=== PATIENT | male | born 1950 | race Caucasian/White ===

== ENCOUNTER 2023-12-08 17:02 | Inpatient (IN) | payer OTHER, SELFPAY ==
[2023-12-08] VITALS (14 sets, daily range): BP systolic 105–160; BP diastolic 75–128; BMI 31.9; BMI 25.3
[2023-12-08 13:55] LABS: % Basophils 0.1 % (0-2); % Eosinophils 0.1 % (0-6); % Immature Granulocytes 0.4 % (0-0.5); % Lymphocytes 5.4 % (20.5-51.1); % Monocytes 4.9 % (1.7-9.3); % Neutrophils 89.1 % (42.2-75.2); Absolute Immature Granulocytes 0.1 10^3/uL (0-0.05); Absolute Lymphocytes 0.8 10^3/uL (1.2-3.4); Absolute Monocytes 0.7 10^3/uL (0.1-0.6); Absolute Neutrophils 12.3 10^3/uL (1.4-6.5); Hematocrit 33.7 % (39.0-52.0); Hemoglobin 11.3 g/dL (13.0-18.0); Mean Corp Hgb Conc. 33.5 g/dL (33.0-37.0); Mean Corpuscular Volume 92.3 fL (80.0-94.0); Mean Platelet Volume 10.4 fL (7.4-10.4); Nucleated Red Blood Cells % 0 % (-); Platelet Count 117 10^3/uL (130-400); Red Blood Cell Count 3.65 10^6/uL (4.70-6.10); Red Cell Dist. Width 12.6 % (11.5-14.5); White Blood Cell Count 13.8 10^3/uL (4.8-10.8)
[2023-12-08 14:22] LABS: ALT (SGPT) 159 U/L (0-50); AST (SGOT) 215 U/L (17-59); Albumin 3.9 g/dl (3.5-5.0); Alkaline Phosphatase 266 U/L (38-126); Blood Urea Nitrogen 86 mg/dl (9-20); Calcium 8.7 mg/dl (8.4-10.2); Carbon Dioxide 21 mmol/L (22-30); Chloride 95 mmol/L (98-107); Glucose 184 mg/dl (70-99); Potassium 4.9 mmol/L (3.5-5.1); Sodium 133 mmol/L (135-145); Total Bilirubin 1.1 mg/dl (0.2-1.3); Total Protein 6.7 g/dl (6.3-8.2); eGFR 16.33
[2023-12-08 14:33] LABS: NT-proBNP > 27000 pg/ml
--- NOTE | 2023-12-08 15:15 | ED.GENMED ---
History of Present Illness
<Loyd Davila PA-C - Last Filed: 12/08/23 15:52>
General
Chief Complaint: Breathing Problem
Source: patient and care aide
Time Seen by Provider: 12/08/23 14:59
History of Present Illness
History of Present Illness:
73-year-old male with past medical history of hypertension, hyperlipidemia, atrial fibrillation, CKD, gdg-fxyhoxo-etqfpmpri diabetes presenting to the emergency department with marine machinist for evaluation of gradually worsening shortness of breath
(patient states he always has some degree of shortness of breath) but last night also developed chest pain that was worse with deep inspiration, chest pain continues presently. Pain is in anterior portion of chest, non-radiating, pressure like
sensation. Patient states that he does cough intermittently but not any worse today than usual. Denies any fevers or recent illnesses. States that he does move around but often times is in bed for the most part. No recent travel or recent
antibiotics. Patient does take a 81 mg aspirin every Wednesday, Wednesday, Wednesday. Took his 81 mg this morning. Denies any other blood thinners.
Past History
<Loyd Davila PA-C - Last Filed: 12/08/23 15:52>
Past History
ED Past Medical History: Arrthythmia, Cancer, HTN, Hypercholesterolemia, NIDDM, Renal failure, Psychiatric (Bipolar disorder, schizophrenia, dependent personality disorder) and Other
ED Past Surgical History: Orthopedic and Other (Skin cancer removal)
Social History
Tobacco: Non-smoker
Alcohol: None
Drug: None
Personal: Single
Living: alone
Employment: Retired
Family History
Family History: Other (Not significant)
Review of Systems
<Loyd Davila PA-C - Last Filed: 12/08/23 15:52>
Review of Systems
All Other Systems: ROS reviewed and negative except as documented in HPI and ROS
Phy Exam
<Loyd Davila PA-C - Last Filed: 12/08/23 15:52>
Physical Exam
Physical Exam:
GENERAL: Alert , in no apparent distress
EYE: conjunctiva clear
NECK: Supple
ENT: o/p clr, mmm.
CARDIAC: Irregularly irregular rate and rhythm, systolic murmur
LUNGS: No tachypnea or accessory muscle use, no acute respiratory distress, Rales at the right base
NEUROLOGICAL: Alert and oriented
SKIN: Warm and dry, skin intact.
MUSCULOSKELETAL: well perfused. Trace nonpitting ankle edema bilateral
PSYCH: Normal and appropriate interaction.
Scores
<Loyd Davila PA-C - Last Filed: 12/08/23 15:52>
Heart Failure Risk
Heart Failure Risk Score: Yes
History of Stroke or TIA: No
History of intubation for respiratory distress: No
Heart rate on ED arrival >/= 110: No
SaO2 <90% on arrival on room air: No
HR >/=110 during 3min walk test (or too ill to perform test): Yes
ECG has acute ischemic changes: No
Urea >/=12mmol/L (BUN 33.6mg/dL): Yes
Serum CO2>/=35mmol/L: No
Troponin I or T elevated to PA Level (0.4mg/dL): Yes
NT-proBNP >/=5,000ng/L (5,000pg/ml): Yes
HF Risk Score: 6
Admission Status: VERY HIGH RISK 55.3% Consider admission to hospital
Heart Score for Chest Pain Patients
STEMI patient?: No
History: Moderately Suspicious
ECG: Nonspecific Repolarization
Age: >/= 65 years
Risk Factors: >/= 3 Risk Factors or History of CAD
Troponin: >/= 3 x Normal Limit
Heart Score for Chest Pain Patients: 8
Heart Score Risk: 72.7 % MACE over next 6 weeks
Withdrawal Assessment of Alcohol
Withdrawal Assessment Completed?: Not applicable
Course
<Loyd Davila PA-C - Last Filed: 12/08/23 15:52>
Orders/Labs/Results
Orders:
Orders
12/08/23 13:41
Electrocardiogram (*1) Urgent
Reason for Study: Atrial Fibrillation
CR Chest - 2 Views Urgent
Comment:
Reason For Exam: SOB
12/08/23 13:42
EKG- Treatment ONCE
12/08/23 13:48
Complete Blood Count/With Diff Urgent
Comprehensive Metabolic Panel Urgent
NT-proBNP Urgent
Troponin I Urgent
12/08/23 15:06
Aspirin Chewable [Low Strength Aspirin] 243 mg PO NOW STA
12/08/23 15:07
Heparin 7,800 units IV NOW STA
Nursing to Place Non Medication Order As Directed
Physician Order: PTT 6 hours after initial start of Heparin infusion
12/08/23 15:15
Heparin 14074 Units/250 ml 25,000 units in 250 ml IV PER PROTOCOL
Weight to be used for heparin protocol in kilograms (kg):: 97.9
Protocol:: Cardiac Tx/Acute Coronary
PTT Goal Range to be used:: PTT 73 to 111 seconds
Order type:: Initial
INITIAL Infusion Dose (UNITS/KG/hr) & then follow protocol:: 12 units/kg/hr
Infusion Dose in UNITS/hr & then follow protocol (UNITS/hr):: 1,000
INFUSION RATE in mL/hr & then follow protocol (mL/hr):: 10
PTT less than or equal to 64 seconds:: Increase rate by 200 units/hr (+ 2 mL/hr)
PTT 64.1 to 72.9 seconds:: Increase rate by 100 units/hr (+ 1 mL/hr)
PTT 73 to 111 seconds:: Target Range. No change in rate.
PTT 111.1 to 130.9 seconds:: Decrease rate by 100 units/hr (- 1 mL/hr)
PTT 131 to 199.9 seconds:: HOLD for 1 hr. Then decrease rate by 200 units/hr (- 2 mL/hr)
PTT greater than or equal to 200 seconds:: HOLD for 2 hrs & Notify Provider. Then decrease by 200 units/hr (-
2 mL/hr)
Lab follow-up:: Each change, PTT q6h until 2 consecutive are therapeutic. Then PTT
daily.
12/08/23 15:20
Furosemide [Lasix] 80 mg IV NOW STA
Nitroglycerin Sublingual [Nitrostat (Sublingual)] 0.4 mg SL [id number] PRN
12/08/23 15:21
Echo 2D MMode Color/Doppler Urgent
Reason for Study: abnormal troponin
12/08/23 15:28
PTT Urgent
Comment: Obtain baseline before beginning heparin infusion if not already collected
12/08/23 21:45
PTT Urgent
Abnormal Lab Results
12/08/23
13:48
WBC 13.8 H 10^3/uL
(4.8-10.8)
RBC 3.65 L 10^6/uL
(4.70-6.10)
Hgb 11.3 L g/dL
(13.0-18.0)
Hct 33.7 L %
(39.0-52.0)
Plt Count 117 L 10^3/uL
(130-400)
Abs Immat Gran (auto) 0.1 H 10^3/uL
(0-0.05)
Absolute Neuts (auto) 12.3 H 10^3/uL
(1.4-6.5)
Absolute Lymphs (auto) 0.8 L 10^3/uL
(1.2-3.4)
Absolute Monos (auto) 0.7 H 10^3/uL
(0.1-0.6)
Neutrophils % 89.1 H %
(42.2-75.2)
Lymphocytes % 5.4 L %
(20.5-51.1)
Sodium 133 L mmol/L
(135-145)
Chloride 95 L mmol/L
(98-107)
Carbon Dioxide 21 L mmol/L
(22-30)
BUN 86 H mg/dl
(9-20)
Creatinine 3.7 H mg/dL
(0.7-1.3)
Glucose 184 H mg/dl
(70-99)
AST 215 H U/L
(17-59)
ALT 159 H U/L
(0-50)
Alkaline Phosphatase 266 H U/L
(38-126)
Troponin I 0.740 H* ng/ml
12/08/23 13:48
12/08/23 13:48
Vital Signs
Initial and Last Documented VS:
Initial Vital Signs
Temp Pulse Resp BP Pulse Ox
98.1 F 92 18 145/78 99
12/08/23 13:37 12/08/23 13:37 12/08/23 13:37 12/08/23 13:37 12/08/23 13:37
Last Documented Vital Signs
Temp Pulse Resp BP Pulse Ox
98.1 F 92 18 160/108 99
12/08/23 13:37 12/08/23 13:37 12/08/23 13:37 12/08/23 15:38 12/08/23 13:37
Building Maintenance Technician consulted with Physician
Building Maintenance Technician consulted with physician?: Yes
Name of Physician Consulted: Juan Diego
<Arnav Adamson, DO - Last Filed: 12/08/23 15:28>
Orders/Labs/Results
Orders:
Orders
12/08/23 13:41
Electrocardiogram (*1) Urgent
Reason for Study: Atrial Fibrillation
CR Chest - 2 Views Urgent
Comment:
Reason For Exam: SOB
12/08/23 13:42
EKG- Treatment ONCE
12/08/23 13:48
Complete Blood Count/With Diff Urgent
Comprehensive Metabolic Panel Urgent
NT-proBNP Urgent
Troponin I Urgent
12/08/23 15:06
Aspirin Chewable [Low Strength Aspirin] 243 mg PO NOW STA
12/08/23 15:07
Heparin 7,800 units IV NOW STA
Nursing to Place Non Medication Order As Directed
Physician Order: PTT 6 hours after initial start of Heparin infusion
12/08/23 15:15
Heparin 00962 Units/250 ml 25,000 units in 250 ml IV PER PROTOCOL
Weight to be used for heparin protocol in kilograms (kg):: 97.9
Protocol:: Cardiac Tx/Acute Coronary
PTT Goal Range to be used:: PTT 73 to 111 seconds
Order type:: Initial
INITIAL Infusion Dose (UNITS/KG/hr) & then follow protocol:: 12 units/kg/hr
Infusion Dose in UNITS/hr & then follow protocol (UNITS/hr):: 1,000
INFUSION RATE in mL/hr & then follow protocol (mL/hr):: 10
PTT less than or equal to 64 seconds:: Increase rate by 200 units/hr (+ 2 mL/hr)
PTT 64.1 to 72.9 seconds:: Increase rate by 100 units/hr (+ 1 mL/hr)
PTT 73 to 111 seconds:: Target Range. No change in rate.
PTT 111.1 to 130.9 seconds:: Decrease rate by 100 units/hr (- 1 mL/hr)
PTT 131 to 199.9 seconds:: HOLD for 1 hr. Then decrease rate by 200 units/hr (- 2 mL/hr)
PTT greater than or equal to 200 seconds:: HOLD for 2 hrs & Notify Provider. Then decrease by 200 units/hr (-
2 mL/hr)
Lab follow-up:: Each change, PTT q6h until 2 consecutive are therapeutic. Then PTT
daily.
12/08/23 15:20
Furosemide [Lasix] 80 mg IV NOW STA
Nitroglycerin Sublingual [Nitrostat (Sublingual)] 0.4 mg SL [id number] PRN
12/08/23 15:21
Echo 2D MMode Color/Doppler Urgent
Reason for Study: abnormal troponin
12/08/23 15:28
PTT Urgent
Comment: Obtain baseline before beginning heparin infusion if not already collected
12/08/23 21:45
PTT Urgent
Abnormal Lab Results
12/08/23
13:48
WBC 13.8 H 10^3/uL
(4.8-10.8)
RBC 3.65 L 10^6/uL
(4.70-6.10)
Hgb 11.3 L g/dL
(13.0-18.0)
Hct 33.7 L %
(39.0-52.0)
Plt Count 117 L 10^3/uL
(130-400)
Abs Immat Gran (auto) 0.1 H 10^3/uL
(0-0.05)
Absolute Neuts (auto) 12.3 H 10^3/uL
(1.4-6.5)
Absolute Lymphs (auto) 0.8 L 10^3/uL
(1.2-3.4)
Absolute Monos (auto) 0.7 H 10^3/uL
(0.1-0.6)
Neutrophils % 89.1 H %
(42.2-75.2)
Lymphocytes % 5.4 L %
(20.5-51.1)
Sodium 133 L mmol/L
(135-145)
Chloride 95 L mmol/L
(98-107)
Carbon Dioxide 21 L mmol/L
(22-30)
BUN 86 H mg/dl
(9-20)
Creatinine 3.7 H mg/dL
(0.7-1.3)
Glucose 184 H mg/dl
(70-99)
AST 215 H U/L
(17-59)
ALT 159 H U/L
(0-50)
Alkaline Phosphatase 266 H U/L
(38-126)
Troponin I 0.740 H* ng/ml
12/08/23 13:48
12/08/23 13:48
Vital Signs
Initial and Last Documented VS:
Initial Vital Signs
Temp Pulse Resp BP Pulse Ox
98.1 F 92 18 145/78 99
12/08/23 13:37 12/08/23 13:37 12/08/23 13:37 12/08/23 13:37 12/08/23 13:37
Last Documented Vital Signs
Temp Pulse Resp BP Pulse Ox
98.1 F 92 18 160/108 99
12/08/23 13:37 12/08/23 13:37 12/08/23 13:37 12/08/23 15:38 12/08/23 13:37
<Loyd Davila PA-C - Last Filed: 12/08/23 15:52>
MDM/Problems Addressed
Differential Diagnosis Includes:
NSTEMI, PE, CHF, less concern for infectious etiology
MDM/Problems Addressed:
73-year-old male presenting to the emergency department for evaluation of shortness of breath that seems to be mostly chronic but last night started with chest discomfort that was worse with deep inspiration. Worsening pleurisy today prompting ER
visit. Difficult to ascertain if patient having pain at rest as he states 'I do not know'. Labs were initiated while in triage which reveals significant troponin elevation of 0.740, BNP is chronically elevated right around patient's baseline at
greater than 27,000. There is also worsening of patient's chronic kidney disease. Liver function tests are also now elevated after being normal over the last few times getting labs. High on differential is either an NSTEMI versus PE. Will treat
with additional 243 mg of aspirin and initiate patient on heparin bolus and drip. Will notify cardiology. Unable to obtain CT angio of the chest for PE rule out given patient's chronic kidney disease. Considered VQ scan however this is unable to
be done quickly. Will defer further imaging/management to inpatient team.
Chronic conditions affecting care: Arrhythmia
Acute Exacerbation and/or Progression of Chronic Illness: Arrhythmia
<Loyd Davila PA-C - Last Filed: 12/08/23 15:52>
*Radiology
Radiology exam reviewed: radiology read reviewed
*Pulse Oximetry
Patient hypoxic: no
*EKG
Interpreted by ED Provider?: Yes
Comparison EKG: no changes
Heart Rate: 108
Rate: tachycardiac
Rhythm: a-fib
Dowling: left axis deviation
*[employer] Interpretation
Rate: tachycardiac
Rhythm: a-fib
*Critical Care Note
Total Time (30-74mins, 75-104mins- exclusive of procedures): 35
comment:
Critical care statement: A total of 35 minutes of critical care time was provided for this patient. This includes management of unstable vital signs, evaluation of the patient at bedside, reviewing the patient's pertinent medical records, discussion
with consultants, review of old EKGs and review of pertinent medical records. This time with separate from time utilized to perform the aforementioned documented procedures
Data Reviewed
Review of Other/Old Records Reveals: Labs and Records
Source: patient, records and care aide
<Loyd Davila PA-C - Last Filed: 12/08/23 15:52>
Patient Management
Discussion with other providers: Hospitalist and Hat Finisher
Escalation/DeEscalation of care consider admission/obs:
Hospitalist team accepts for continued evaluation and treatment. Cardiology ordering echo and will evaluate as well.
ED Attending Note
<Loyd Davila PA-C - Last Filed: 12/08/23 15:52>
-
Portions of this chart may have been created with voice recognition software.� Occasional wrong word or��sound alike� substitutions may have occurred due to the inherent limitations of voice recognition software.
<Arnav Adamson DO - Last Filed: 12/08/23 15:28>
ED Attending Note
Patient seen and examined by attending physician: Yes
I performed the substantive portion of visit, reviewed & personally made and approve the management plan that is documented in note by myself or SEAN.: Yes
ED Attending Note:
seen with Pa, agree with a/p
cki
sob/cp
cxr, labs noted
will diurese
UFH
? ACS/CHF vs PE
consider echo vs v/q
Discharge Plan
Departure
Patient Disposition: Admit
Date of Disposition: 12/08/23
Time of Disposition: 15:15
Presentation/result/management discussed w/ accepting MD/DO: Hospitalist
Discharge Problem:
Non-ST elevation (NSTEMI) myocardial infarction, CKD (chronic kidney disease), Atrial fibrillation
Prescriptions:
No Action
metoprolol succinate 100 MG tablet extended release 24 hr
100 mg PO DAILY
aspirin 81 MG tablet,delayed release (DR/EC)
81 mg PO MOWEFR
olanzapine 15 mg Tablet
15 mg PO HS
doxazosin 2 MG tablet
2 mg PO BID
ferrous sulfate 325 mg (65 mg iron) tablet
325 mg PO DAILY Qty: 60 0RF
albuterol sulfate 90 mcg/actuation HFA aerosol inhaler
2 puff INHALATION R Q4HPRN PRN (Reason: sob)
tamsulosin 0.4 mg Capsule
0.4 mg PO DAILY Qty: 30 0RF
sodium bicarbonate 650 mg Tablet
650 mg PO BID Qty: 60 0RF
torsemide 20 mg tablet
20 mg PO QPM
calcitriol 0.25 mcg Capsule
0.25 mcg PO MOWEFR
Interventions
Interventions:
*Risk Screen - Suicide Last Done: 12/08/23 13:37
*General Assessment Last Done: 12/08/23 13:37
*Neglect/Abuse Screening Last Done: 12/08/23 13:37
Discharge Date and Time
Print Language: KHMER
[2023-12-08] MEDS: LOW STRENGTH ASPIRIN 243 MG PO (15:25)
[2023-12-08] MEDS: NITROSTAT (SUBLINGUAL) 0.4 MG SL ×3 (15:31→16:05)
[2023-12-08] MEDS: HEPARIN 7800 UNITS IV (15:32)
--- NOTE | 2023-12-08 15:40 | CON.CAR ---
Addendum entered and electronically signed by Tyler Mosher MD 12/08/23 17:09:
I saw and examined the patient.
The CHILDCARE TEACHER's note was reviewed and I agree with the note.
Comment: He reports perhaps 1 week of worsened GURROLA (going up the 7 steps in his home). No PND/orthopnea/edema. Had hours of sharp stabbing pain last night but now resolved. Echo with EF 35%, severe LAE, mild MR, normal RV. No RV strain. Trop 0.7,
the highest we have seen. pBNP is higher than average but not his highest. CXR looks fine. EKG w/o significant ST-T shifts
Imp:
1. Atypical chest pain, perhaps from heart failure or other cause
2. Abnormal troponin, likely nonischemic myocardial injury from HF, CKD, AFib, but this higher than prior troponins. Also consider myocarditis and ACS/[place]
3. Suspect acute on chronic HFrEF as potential etiology of #1 and #2 above
- Not on much meds for HFrEF limited by renal insuf.
- If eGFR improves we can consider initiating SGLT2-I, continue HF BB, No RAAS (ARNi/MIGUELITO-i/ARB) or MRA (Aldactone or eplereonone) b/c of PATTI on top of CKD)
- Could revisit meds
4. PATTI on CKD4
5. Right nephrectomy
6. Permanent AFib, not on anticoagulation, [id number] 5 (HF, HTN, DM, age2)
- typically not on anticoagulation as risks were felt greater than benefits, no on IV heparin with concern for ACS or PE
7. DM
8. Mental illness and cognitive impairment, chronic (see psych note 11/07/2021)
Suggest:
Trend trops
EKG in AM
Continue IV heparin, defer a consideration for V/Q scan to hospitalist
IV diuresis for suspected Acute on chronic HFrEF
Original Note:
Consultation
Consultation Request
Date/Time Consultation Requested: 12/08/23 1518
Date/Time Consultation Performed: 12/08/23 1521
Requesting Provider: Loyd Crow
Performing Provider: Ashly BENTON for Dr. Mosher
Reason for Consultation: Abnormal troponin
Medical History
-
Chief Complaint: chest pain
History of Present Illness:
73 y/o male with schizophrenia with cognitive impairment (per OP chart), permanent AFIB (not on OAC due to med non-compliance and fall risk per OP chart), HFrEF (EF 30-35%, specific etiology unclear, but conservative management has been maintained),
hypertension, dyslipidemia, DM, renal cancer s/p nephrectomy, chronic renal insufficiency (Dr. Truong), ambulatory dysfunction (walker/cane use per OP chart), and anemia who is here for evaluation of chest pain since last night. He notes a sharp
pain with inspiration. Improved in ER. There is associated SOB. He is in no distress at the time of my assessment. Troponin is 0.740, BNP >22049. WBC 13.8. Weight has been stable. He has been taking his medicines. Dr. Palacio is his fire systems inspector.
Past Medical History
Past Medical History: Arrhythmias, Cancer (renal), CHF, HTN, Hypercholesterolemia, NIDDM and Psychiatric (schizophrenia)
Social History
Tobacco: Non-Smoker
Family History
Family History: Reviewed & Not Pertinent
Allergies / Home Medications
Allergy/AdvReac Type Severity Reaction Status Date / Time
No Known Allergies Allergy Verified 12/08/23 13:37
�Medication �Instructions �Recorded �Confirmed �Type
metoprolol succinate 100 mg 100 mg PO DAILY Blood pressure 08/20/21 12/08/23 History
tablet,extended release 24 hr
aspirin 81 mg tablet,delayed 81 mg PO MOWEFR Blood clot 09/30/21 12/08/23 History
release prevention/tx
doxazosin 2 mg tablet 2 mg PO BID Blood pressure 01/08/22 12/08/23 History
olanzapine 15 mg tablet 15 mg PO HS Mental Health/Anxiety 01/08/22 12/08/23 History
ferrous sulfate 325 mg (65 mg 325 mg PO DAILY #60 tabs 01/13/22 12/08/23 Rx
iron) tablet
albuterol sulfate 90 mcg/actuation 2 puff inhalation R Q4HPRN PRN sob 06/18/22 12/08/23 History
aerosol inhaler
sodium bicarbonate 650 mg tablet 650 mg PO BID #60 tabs 06/24/22 12/08/23 Rx
tamsulosin 0.4 mg capsule 0.4 mg PO DAILY #30 caps 06/24/22 12/08/23 Rx
torsemide 20 mg tablet 20 mg PO QPM Fluid 08/26/22 12/08/23 History
Retention/Swelling
calcitriol 0.25 mcg capsule 0.25 mcg PO MOWEFR 12/08/23 12/08/23 History
Review of Systems
-
History Source: Patient
All other systems: Negative unless noted
Respiratory: Trouble Breathing
Cardiac: Chest Pain
Physical Exam
Vital Signs
Temp Pulse Resp BP Pulse Ox
98.1 F 92 18 160/108 99
12/08/23 13:37 12/08/23 13:37 12/08/23 13:37 12/08/23 15:38 12/08/23 13:37
Lab Results
12/08/23 13:48
12/08/23 13:48
Troponin I 0.740 ng/ml H* 12/08/23 13:48
Tgt-R-Myicepxjjym Pept > 06524 pg/ml 12/08/23 13:48
Physical Exam
General: Well Developed, Well Nourished and No Apparent Distress
HEENT: Normocephalic and Anicteric
Respiratory: Crackles (mild BL bases) and Non Labored Respirations
Cardiac: Irregular Rhythm
Musculoskeletal: No Edema
Skin: Warm and Dry
Neuro: Awake and Alert
Psych: Calm
Impression / Plan
-
Chest pain:
-sounds pleuritic in his description- worse with inspiration and sharp
-however, received ASA/nitro in ER
-started on heparin, which requires intensive monitoring
-ER not doing PE study due to renal dysfunction
-echo now, trend trops
Abnormal troponin:
-suspect acute non-ischemic myocardial injury in setting of CHF, abnormal renal function, elevated BP's in ER
-trend to peak
-checking echo
HFrEF: [id number]
-BNP >19121. Mild rales to bases. Monitor response to IV lasix ordered in ED.
Permanent AFIB:
-continue metoprolol and follow telemetry
-per OP notes, not on OAC due to cognitive impairment, bleeding risk, medication noncompliance, and fall risk . Now on heparin gtt as above. [id number] score is at least 5 for CHF, HTN, age, DM.
PATTI on CKD:
-creat normally around 3 per OP notes
-monitor with diuresis, consider need renal input
HTN:
-significantly elevated in ER
-resume meds and monitor with IV diuresis
Data Reviewed
-
EKG: Tracing Personally Visualized and interpreted (AFIB 108 BPM IVCD)
Radiology: Report Reviewed by me (no acute disease of chest)
Medical Tests (Nuc Med, Echo etc): Report Reviewed by me (echo 07/24/21: Moderately reduced systolic function with an LVEF of 30-35%. Global hypokinesis with more severe hypokinesis of the inferior wall. Normal right ventricular size and mildly
reduced systolic function.)
Labs: Labs Reviewed by me
[2023-12-08] MEDS: HEPARIN 25000 UNITS/250 ML IV (15:47)
[2023-12-08] MEDS: LASIX 80 MG IV (16:05)
[2023-12-08 16:10] LABS: APTT 48.5 Sec (23.4-35.0)
--- NOTE | 2023-12-08 16:17 | HPS.HSE ---
Family Physician
-
Family Physician: Douglas Myles [facility], [place]
Chief Complaint
-
chest pain
History of Present Illness
Mr. 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
Patient states that since yesterday evening he had pain taking a deep breath. He feels better now, states he can breathe without pain. No fevers/chills. No nausea/vomiting. No LE swelling. No abdominal pain.
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
Medical History
Past Medical History
Past Medical History: Reports Other
Additional Past Medical History:
DM, Afib, HFrEF, renal cell CA s/p nephrectomy, schizophrenia, recent adm 06/18 to 06/24 due to hyponatremia, PATTI, retention requiring ragland placemen
Past Surgical History: Reports Orthopedic
Social History
Tobacco: Non-smoker
Alcohol: None
Family History
Family History: Not pertinent
Allergies / Home Medications
Allergies reflects when Allergies were last updated in [employer].
Home Medications with original date entered in [employer]
Allergy/Medication List:
Allergies
Allergy/AdvReac Type Severity Reaction Status Date / Time
No Known Allergies Allergy Verified 12/08/23 13:37
Home Medications
metoprolol succinate 100 mg tablet,extended release 24 hr 100 mg PO DAILY Blood pressure 08/20/21
aspirin 81 mg tablet,delayed release 81 mg PO MOWEFR Blood clot prevention/tx 09/30/21
doxazosin 2 mg tablet 2 mg PO BID Blood pressure 01/08/22
olanzapine 15 mg tablet 15 mg PO HS Mental Health/Anxiety 01/08/22
ferrous sulfate 325 mg (65 mg iron) tablet 325 mg PO DAILY #60 tabs 01/13/22
albuterol sulfate 90 mcg/actuation aerosol inhaler 2 puff inhalation R Q4HPRN PRN sob 06/18/22
sodium bicarbonate 650 mg tablet 650 mg PO BID #60 tabs 06/24/22
tamsulosin 0.4 mg capsule 0.4 mg PO DAILY #30 caps 06/24/22
torsemide 20 mg tablet 20 mg PO QPM Fluid Retention/Swelling 08/26/22
calcitriol 0.25 mcg capsule 0.25 mcg PO MOWEFR 12/08/23
Review of Systems
-
History Source: Patient
A 12 point ROS was completed and negative except as noted: Yes
Physical Exam
Vital Signs
Vital Signs
Temp Pulse Resp BP Pulse Ox
98.1 F 103 18 143/108 99
12/08/23 13:37 12/08/23 16:05 12/08/23 13:37 12/08/23 16:05 12/08/23 13:37
Physical Exam
General: No Apparent Distress
HEENT: PERRLA
Respiratory: Clear; No Wheezes
Cardiac: Irregular Rhythm and JVD
GI: Soft, Non Tender and Non Distended
Musculoskeletal: No Edema
Skin: Warm and Dry; No Rash
Neuro: AO x 3
Psych: Calm
Laboratory Results
-
12/08/23 13:48
12/08/23 13:48
Laboratory Results
APTT 48.5 Sec (23.4-35.0) H 12/08/23 15:28
Total Bilirubin 1.1 mg/dl (0.2-1.3) 12/08/23 13:48
AST 215 U/L (17-59) H 12/08/23 13:48
ALT 159 U/L (0-50) H 12/08/23 13:48
Alkaline Phosphatase 266 U/L (38-126) H 12/08/23 13:48
Troponin I 0.740 ng/ml H* 12/08/23 13:48
Data Reviewed
-
Diagnostic Radiology: Report Reviewed by me
Lab Data: Labs Reviewed by me
Impression/Plan
-
Mr. 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
Triage VS: T 98.1, P 92, RR 18, BP 145/78, SpO2 99%
LABS: WBC 13.8, Hg 11.3, PLT 117, Na 133, K+ 4.9, Cl 95, CO2 21, BUN 86, Cr 3.7, Glucose 184, AST 215, ALT 159, Trop 0.740, BNP > 00532
EKG: afib, non-specific intra-ventricular conduction block, no significant change from prior
CXR
IMPRESSION:
No acute cardiopulmonary abnormality.
TTE (07/2021)
CONCLUSIONS
Moderately reduced systolic function with an LVEF of 30-35%.
Global hypokinesis with more severe hypokinesis of the inferior wall.
Normal right ventricular size and mildly reduced systolic function.
No significant valvular disease.
Compared to previous echo 06/25/2021, there is now moderate systolic
dysfunction.
MAR: IV heparin gtt initiated with oral aspirin given, Lasix 80mg IV x 1
Chest Pain
Elevated Troponin, NSTEMI versus non-ID Troponin elevation in setting of heart failure
Heart Failure reduced Ejection Fraction
-TTE from 2021 with moderately reduced EF 30-35% (see above)
-s/p stat echo in ER with findings similar to prior (at this point etiology unclear, medical management pursued)
-admit to telemetry
-s/p lasix 80mg IV in ER,continue BID
-daily weights, strict I/O
-continue IV Heparin gtt
-trend Troponins
-appreciate cardiology consult
-new start Imdur 30mg PO QD starting tomorrow
-daily aspirin
-DEVELOPMENT COORDINATOR Metop XL 100mg daily
CKD IV
Hx Right Nephrectomy 2/2 RCCC
-monitor renal function closely with diuresis, low threshold for renal consult if renal function doesn't improve
Elevated liver enzymes
-no abdominal pain
-suspect 2/2 congestion
-imaging if doesn't improve with diuresis
Atrial Fibrillation
-DEVELOPMENT COORDINATOR Metop XL
Schizophrenia
-DEVELOPMENT COORDINATOR Olanzapine
Essential HTN
-DEVELOPMENT COORDINATOR Doxazosin, Metop
BPH
-DEVELOPMENT COORDINATOR Flomax
DVT PPx heparin gtt
FULL CODE
76 minutes spent on patient care
[2023-12-08 20:20] LABS: Troponin I 0.534 ng/ml
[2023-12-08] MEDS: SODIUM BICARBONATE 650 MG PO (20:25)
[2023-12-08] MEDS: CARDURA 2 MG PO (20:25)
[2023-12-08] MEDS: ZYPREXA 15 MG PO (22:13)
[2023-12-08 22:37] LABS: APTT 158.3 Sec (23.4-35.0)
[2023-12-09] VITALS (19 sets, daily range): BP systolic 77–154; BP diastolic 33–100; BMI 25.1
[2023-12-09 05:30] LABS: Troponin I 0.366 ng/ml
[2023-12-09 07:31] LABS: APTT 70.7 Sec (23.4-35.0)
[2023-12-09] MEDS: TOPROL XL 100 MG PO (07:35)
[2023-12-09] MEDS: SODIUM BICARBONATE 650 MG PO ×2 (07:36→20:42)
[2023-12-09] MEDS: IMDUR (EXTENDED RELEASE) 30 MG PO (07:36)
[2023-12-09] MEDS: ASPIR LOW (ENTERIC COATED) 81 MG PO (07:36)
[2023-12-09] MEDS: FLOMAX 0.4 MG PO (07:36)
[2023-12-09] MEDS: LASIX 80 MG IV ×2 (07:36→14:45)
[2023-12-09] MEDS: CARDURA 2 MG PO ×2 (07:36→20:41)
[2023-12-09 07:56] LABS: ALT (SGPT) 289 U/L (0-50); AST (SGOT) 285 U/L (17-59); Albumin 3.3 g/dl (3.5-5.0); Alkaline Phosphatase 253 U/L (38-126); Blood Urea Nitrogen 92 mg/dl (9-20); Calcium 8.4 mg/dl (8.4-10.2); Carbon Dioxide 21 mmol/L (22-30); Chloride 95 mmol/L (98-107); Estimated Creatinine Clearance 21 ml/min; Glucose 146 mg/dl (70-99); HDL Cholesterol 52 mg/dl; LDL Cholesterol, Calculated 56 mg/dl; Magnesium 2.5 mg/dl (1.6-2.3); Potassium 4.5 mmol/L (3.5-5.1); Sodium 133 mmol/L (135-145); Total Bilirubin 0.5 mg/dl (0.2-1.3); Total Cholesterol 131 mg/dl (50-199); Triglyceride 119 mg/dl (10-149); Very Low Density Lipoprotein 23 mg/dl (0-30); eGFR 16.33
--- NOTE | 2023-12-09 08:00 | W.PN.CD ---
Today's Communication / Plan
-
-Pleuritic chest pain (sharp, worse with inspiration); now resolved with diuresis.
-Echocardiogram yesterday with overall unchanged cardiac function (EF 35%).
-Will discontinue heparin drip.
-Continue Lasix 80 mg IV BID.
Impression / Plan
-
73 y/o male (known to Dr. Palacio, His primary Biofuels Technology Development Manager) with advanced schizophrenia with cognitive impairment , permanent AFIB (not on OAC due to med non-compliance and fall risk), HFrEF (EF 30-35%, specific etiology unclear, but conservative
management due to advanced CKD and cognitive impairment), hypertension, dyslipidemia, DM, renal cancer s/p nephrectomy, chronic renal insufficiency (Dr. Truong), ambulatory dysfunction (walker/cane use per OP chart), and anemia who is here for
evaluation of chest pain since last night. He notes a sharp pain with inspiration. Improved in ER. There is associated SOB. He is in no distress at the time of my assessment. Troponin is 0.740, BNP >58125. WBC 13.8. Weight has been stable. He has
been taking his medicines.
Chest pain:
-Pleuritic chest pain (sharp, worse with inspiration); now resolved with diuresis.
-Echocardiogram yesterday with overall unchanged cardiac function (EF 35%).
-Will discontinue heparin drip.
Abnormal troponin:
-Acute non-ischemic myocardial injury in setting of CHF, abnormal renal function, elevated BP's in ER.
-Now trending down with management.
HFrEF: [id number]
-BNP >34713. Mild rales to bases.
-Continue Lasix 80 mg IV BID.
Permanent AFIB:
-Heart rate is variable, but fairly controlled overall.
-Continue Toprol-XL 100 mg daily.
-per OP notes, not on OAC due to cognitive impairment, bleeding risk, previous medication noncompliance, and fall risk .
PATTI on CKD:
-creat normally around 3 per OP notes
-Appears to be at baseline.
HTN:
-significantly elevated in ER
-Improving with diuresis.
Physical Exam
Vital Signs/Labs
Vital Signs
Temp Pulse Resp BP Pulse Ox
97.8 F 80 18 144/99 98
12/09/23 03:47 12/09/23 03:47 12/09/23 03:47 12/09/23 07:35 12/09/23 03:47
12/08/23 12/09/23 12/10/23
06:59 06:59 06:59
Actual Weight 93.553 kg
12/08/23 13:48
12/09/23 06:16
APTT 70.7 Sec (23.4-35.0) H 12/09/23 06:16
Magnesium 2.5 mg/dl (1.6-2.3) H 12/09/23 06:16
Triglycerides 119 mg/dl (10-149) 12/09/23 06:16
LDL Cholesterol, Calc 56 mg/dl 12/09/23 06:16
VLDL Cholesterol, Calc 23 mg/dl (0-30) 12/09/23 06:16
HDL Cholesterol 52 mg/dl 12/09/23 06:16
12/08/23
13:48
Xsk-I-Ohfgjvvuosh Pept > 27605
LAB Results
12/08/23 12/08/23 12/09/23
13:48 19:47 04:10
Troponin I 0.740 H* 0.534 H* D 0.366 H*
12/09/23
06:00
Troponin I Cancelled
Physical Exam
Constitutional: No acute distress and Comfortable
EENT: Anicteric
Cardiovascular: Pedal edema is absent, Rhythm/rate is irregular, Systolic murmur present (04/10) and S1S2 is normal
Respiratory: Respiratory effort normal and Rhonchi Present (Very mild bibasilar)
GI: Soft
Neuro/Psych: AO x 3
Other: Skin (Warm, dry, intact)
Data Reviewed
-
Date of Service: December 09, 2023
EKG: Report Reviewed by me (Telemetry: Atrial fibrillation)
Echo: Report Reviewed by me (EF 35%; mild to moderate TR)
Labs: Labs Reviewed by me
[2023-12-09 08:22] LABS: TSH Reflex To Free T4 1.69 uIU/ml (0.47-4.68)
--- NOTE | 2023-12-09 09:54 | CM ---
Addendum entered by Kayla Rain 12/09/23 11:17:
Plan: home with VN
Original Note:
Patient seen bedside.
IA completed.
Patient lives alone in a 1 floor apartment, currently a basement apartment with steps to enter.
Pt is moving in a few weeks to a 1 [address] floor apartment in [place].
Patient ambulates with a cane.
Patient has private care givers from [facility] 5 days a week M-F for 4 hours per day.
Patient has palliative care and VN, TT to liaison.
Patient does not drive.
patient stated brother or caregiover would transport home.
PCP: Dr Corona
Pharmacy: [facility]
Plan: home with
--- NOTE | 2023-12-09 10:58 | VNURNOTE ---
Home Health Liaison met with patient at bedside to discuss [facility] nurse/therapy, visits, schedule and homebound status. Patient is agreeable and understands that visits at home will be 2-3 x per week to assess and teach medical management. patient
confirms he has a scale at home. HF booklet at bedside. [facility] brochure provided with contact information. Patient is aware that [facility] will contact them for start of care in 1-2 days after discharge from . [facility] referral completed in [facility].
--- NOTE | 2023-12-09 11:11 | W.PN.HOSP.TC ---
Today's Communication/Plan
-
diuresis
Assessment / Plan
Assessment / Plan
Mr. 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
Chest Pain - pleuritic
Elevated Troponin - non-OH Troponin elevation in setting of heart failure
Heart Failure reduced Ejection Fraction
-TTE from 2021 with moderately reduced EF 30-35% (at this point etiology unclear, medical management pursued))
-s/p stat echo in ER with findings similar to prior
-admit to telemetry
-s/p lasix 80mg IV in ER,continue BID
-daily weights, strict I/O
-IV heparin gtt stopped
-appreciate cardiology consult
-new start Imdur 30mg PO QD starting today
-daily aspirin
-RAW MATERIAL PLANNER Metop XL 100mg daily
CKD IV
Hx Right Nephrectomy 2/2 RCCC
-monitor renal function closely with diuresis, low threshold for renal consult if renal function doesn't improve
-renal function stable 3.7 this morning
Elevated liver enzymes
-no abdominal pain
-suspect 2/2 congestion
-imaging if doesn't improve with diuresis - ordered for tomorrow AM
Atrial Fibrillation
-RAW MATERIAL PLANNER Metop XL
Schizophrenia
-RAW MATERIAL PLANNER Olanzapine
Essential HTN
-RAW MATERIAL PLANNER Doxazosin, Metop
BPH
-RAW MATERIAL PLANNER Flomax
DVT PPx hep subQ
FULL CODE
51 minutes spent on patient care
Anticipated Discharge: > 48 hours
Subjective/Interval History
-
Date of Service: December 09, 2023
no pain
urinating frequently
continues to appear short of breath
Objective Data
-
Labs:
Laboratory Results
12/09/23 12/09/23
06:16 13:45
APTT 70.7 H Pending
Sodium 133 L
Potassium 4.5
Chloride 95 L
Carbon Dioxide 21 L
BUN 92 H
Creatinine 3.7 H
Glucose 146 H
Calcium 8.4
Total Bilirubin 0.5
AST 285 H
ALT 289 H
Alkaline Phosphatase 253 H
Vital Signs:
Vital Signs
Temp Pulse Resp BP Pulse Ox
97.6 F 75 16 144/99 100
12/09/23 07:30 12/09/23 07:30 12/09/23 07:30 12/09/23 07:35 12/09/23 07:30
I&O
12/08/23 12/09/23 12/10/23
06:59 06:59 06:59
Intake Total 558 / 558
Output Total 975 / 975
Balance -417 / -417
Review of Systems
-
History Source: Patient
All other systems: Reviewed and negative
Physical Exam
-
General: Other (mildly tachypneic )
HEENT: Normocephalic and Atraumatic
Respiratory: Rales; Negative Wheezes
Cardiac: S1/S2, Irregular Rhythm and JVD
Breast: Deferred by me
GI: Soft, Nontender and Nondistended
Rectal: Deferred by Provider
Genito-urinary: Delacruz (yellow urine)
Musculoskeletal: No Clubbing, No Cyanosis and No Edema
Skin: Warm
Neuro: Awake
Psych: Calm
Data Reviewed
-
Diagnostic Radiology: Report Reviewed by me
Labs: Labs Reviewed by me
[2023-12-09] MEDS: NITROSTAT (SUBLINGUAL) 0.4 MG SL (13:21)
[2023-12-09 14:02] LABS: Glucose - Point of Care 298 mg/dl (70-99)
--- NOTE | 2023-12-09 14:03 | RR ---
Pt reports not feeling well and complains of chest pain 8/10- dull aching pain. EKg obtained- Cardiology & Hospitalists Notified
BP 140/79 HR 60, 100% RA, Sublingual nitro x1 given with no relief. BP 103/69, Hr 71, 100% RA.
Decrease in Responsiveness, BP dropped
A Rapid Response was called on this patient, please see Rapid Response form.
[2023-12-09 14:34] LABS: Troponin I 0.237 ng/ml
[2023-12-09] MEDS: MORPHINE SULFATE 1 MG IV ×2 (14:46→21:44)
[2023-12-09] MEDS: HEPARIN 5000 UNITS SC (20:42)
[2023-12-09 21:04] LABS: Troponin I 0.194 ng/ml
--- NOTE | 2023-12-09 21:15 | PTCARENOTE ---
Pt reports 6/10 pain in his left lower chest/left upper abdomen. No PRN pain medications ordered. BP at this time was 154/100, HR 72. Latest troponin at 2029 was 0.194. House SPRING FORGER Anton notified, order placed for PRN IV Morphine 1mg and provided to
pt.
[2023-12-09] MEDS: ZYPREXA 15 MG PO (21:44)
[2023-12-10] VITALS (80 sets, daily range): BP systolic 55–153; BP diastolic 31–106; BMI 24.8
[2023-12-10] MEDS: MORPHINE SULFATE 1 MG IV (04:48)
[2023-12-10 07:01] LABS: Hematocrit 22.1 % (39.0-52.0); Hemoglobin 7.6 g/dL (13.0-18.0); Mean Corp Hgb Conc. 34.4 g/dL (33.0-37.0); Mean Corpuscular Hgb 30.5 pg (27.0-31.0); Mean Corpuscular Volume 88.8 fL (80.0-94.0); Mean Platelet Volume 11.4 fL (7.4-10.4); Platelet Count 46 10^3/uL (130-400); Red Blood Cell Count 2.49 10^6/uL (4.70-6.10); Red Cell Dist. Width 12.5 % (11.5-14.5); White Blood Cell Count 8.7 10^3/uL (4.8-10.8)
[2023-12-10 07:11] LABS: Albumin 3.5 g/dl (3.5-5.0); Alkaline Phosphatase 293 U/L (38-126); Blood Urea Nitrogen 97 mg/dl (9-20); Calcium 8.7 mg/dl (8.4-10.2); Carbon Dioxide 23 mmol/L (22-30); Chloride 92 mmol/L (98-107); Estimated Creatinine Clearance 22 ml/min; Glucose 161 mg/dl (70-99); Potassium 4.6 mmol/L (3.5-5.1); Sodium 132 mmol/L (135-145); Total Bilirubin 1.8 mg/dl (0.2-1.3); Total Protein 6.2 g/dl (6.3-8.2); eGFR 17.46
[2023-12-10 07:27] LABS: ALT (SGPT) 903 U/L (0-50); AST (SGOT) 864 U/L (17-59)
[2023-12-10 07:34] LABS: Glucose - Point of Care 262 mg/dl (70-99)
--- NOTE | 2023-12-10 07:35 | RR ---
When the slot shift manager nurse & I walked into the room for shift report, the pt was complaining of chest pain and back pain.
When the aid went into the room to take vitals he said that his back was hurting. When she took his vitals the BP was low 77/52, Temp: 98.1, 2L @ 98%, 22 Respirations.
Rapid response was called
A Rapid Response was called on this patient, please see Rapid Response form.
--- NOTE | 2023-12-10 07:52 | W.PN.HOSP.TC ---
Addendum entered and electronically signed by Jeanie Magallon MD 12/11/23 09:41:
non-MO troponin elevation 2/2 heart failure
Original Note:
Today's Communication/Plan
-
transfer to ICU
see plan
left message for friend
called brother straight to - not set up yet
Assessment / Plan
Assessment / Plan
Mr. 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
Chest Pain - pleuritic
Elevated Troponin - non-MO Troponin elevation in setting of heart failure
Heart Failure reduced Ejection Fraction
-TTE from 2021 with moderately reduced EF 30-35% (at this point etiology unclear, medical management pursued))
-s/p stat echo in ER with findings similar to prior
-admit to telemetry
-s/p lasix 80mg IV in ER - now hold with hypotension this morning - see below
-daily weights, strict I/O
-appreciate cardiology consult
-hold aspirin with anemia (see below)
-hold Metoprolol and Imdur
Cardiogenic shock versus septic shock versus hypovolemic versus hemorraghic
-drop in BP yesterday with nitro then BP improved, hypotensive to 70's this morning (only IV morphine given overnight). Hg with drop to 7.6 this AM
-stat EKG without STEMI; Troponins have been trending down
-giving some fluids back now, may need pressors
-transfer to ICU
-hold LIPCOAT SPRAYER Metoprolol, Imdur, aspirin
-blood consent signed
-stat Hg and type & cross match
-low threshold for transfusion
Elevated Liver enzymes
concern for shock liver
-stat CT A/P as above
CKD IV
Hx Right Nephrectomy 2/2 RCCC
-renal function stable at 3.5 this morning
-sees Dr. Truong
Atrial Fibrillation
-LIPCOAT SPRAYER Metop XL
Schizophrenia
-LIPCOAT SPRAYER Olanzapine
Essential HTN
-LIPCOAT SPRAYER Doxazosin, Metop
BPH
-LIPCOAT SPRAYER Flomax
DVT PPx SCD with drop in Hg
FULL CODE
Total Critical Care Time 45 minutes. I was immediately available to the patient and staff. I personally examined, reviewed labs, diagnostic images/reports, interpretations, treatment plans, discussed patient care with other providers and family
or caregivers (if patient is unable to make decisions), entered orders as appropriate and documented the medical record.
Anticipated Discharge: > 48 hours
Subjective/Interval History
-
Date of Service: December 10, 2023
patient found unresponsive and hypotensive this morning, rapid called
currently denying chest pain
felt chest and back pain with deep breaths
Objective Data
-
Labs:
Laboratory Results
12/10/23 12/10/23
06:03 07:41
WBC 8.7
Hgb 7.6 L D Pending
Hct 22.1 L
Plt Count 46 L D
Sodium 132 L
Potassium 4.6
Chloride 92 L
Carbon Dioxide 23
BUN 97 H
Creatinine 3.5 H
Glucose 161 H
Calcium 8.7
Total Bilirubin 1.8 H D
AST 864 H*
ALT 903 H*
Alkaline Phosphatase 293 H
Vital Signs:
Vital Signs
Temp Pulse Resp BP Pulse Ox
98.0 F 51 18 76/52 98
12/10/23 07:00 12/10/23 07:00 12/10/23 07:00 12/10/23 07:00 12/10/23 07:00
I&O
12/09/23 12/10/23 12/11/23
06:59 06:59 06:59
Intake Total 558 / 558 480 / 480
Output Total 975 / 975 1959 / 1959
Balance -417 / -417 -1480 / -1480
Review of Systems
-
History Source: Patient
All other systems: Reviewed and negative
Physical Exam
-
General: Other (frail appearing, seen in Trendelenberg )
Respiratory: Rales
Cardiac: S1/S2
GI: Soft and Nontender
Musculoskeletal: No Edema
Skin: Warm and Dry; Negative Rash
Neuro: Awake and Alert
Psych: Calm
Data Reviewed
-
Diagnostic Radiology: Report Reviewed by me
Labs: Labs Reviewed by me
--- NOTE | 2023-12-10 08:10 | CON.INTV ---
Consultation
Consultation Request
Date/Time Consultation Requested: 12/08
Date/Time Consultation Performed: 12/08
Reason for Consultation: Critical care
Medical History
-
History of Present Illness:
Will history obtained from the patient and reviewing the chart. 73-year-old male with complex medical history, schizophrenia, atrial fibrillation not on anticoagulation, heart failure EF 30% hypertension, hyperlipidemia, history of renal cancer
with nephrectomy in the past, chronic kidney disease who presents with sharp pain. He was initially admitted 12/07. Troponin was elevated, proBNP elevated. Patient was diuresed, treated with nitroglycerin and morphine. Symptoms improved. It was
noted that he also had transaminitis. This morning, rapid response was called due to hypotension. Patient was noted to be anemic which was confirmed on repeat studies. IV fluids given, stress dose steroids, transfusion. Patient mated to ICU for
further management 12/10/2023
Patient is without chest pain at this time. He does admit to some shortness of breath. Denies nausea, abdominal pain. He is conversant and mentating but does digress with conversation
.
PMH: Hypertension, hyperlipidemia, atrial fibrillation not on anticoagulation due to fall risk, noncompliance, history of schizophrenia with cognitive impairment, renal cancer status post nephrectomy with chronic renal disease, ambulatory
dysfunction, diabetes
Past Medical History
Past Medical History: None (See above)
Past Surgical History: None (See above will)
Social History
Tobacco: Non-smoker
Alcohol: None
Drug: None
Personal: Single
Living: Alone
Family History
Family History: Other (2 brothers healthy. No children)
Allergies / Home Medications
Allergies
Allergy/AdvReac Type Severity Reaction Status Date / Time
No Known Allergies Allergy Verified 12/08/23 13:37
Home Medications
�Medication �Instructions �Recorded �Confirmed �Last Taken �Type
metoprolol succinate 100 mg 100 mg PO DAILY Blood pressure 08/20/21 12/08/23 12/08/23 History
tablet,extended release 24 hr
aspirin 81 mg tablet,delayed 81 mg PO MOWEFR Blood clot 09/30/21 12/08/23 12/08/23 History
release prevention/tx
doxazosin 2 mg tablet 2 mg PO BID Blood pressure 01/08/22 12/08/23 12/08/23 History
olanzapine 15 mg tablet 15 mg PO HS Mental Health/Anxiety 01/08/22 12/08/23 12/07/23 History
ferrous sulfate 325 mg (65 mg 325 mg PO DAILY #60 tabs 01/13/22 12/08/23 08/24/22 08:00 Rx
iron) tablet
albuterol sulfate 90 mcg/actuation 2 puff inhalation R Q4HPRN PRN sob 06/18/22 12/08/23 Unknown History
aerosol inhaler
sodium bicarbonate 650 mg tablet 650 mg PO BID #60 tabs 06/24/22 12/08/23 12/08/23 Rx
tamsulosin 0.4 mg capsule 0.4 mg PO DAILY #30 caps 06/24/22 12/08/23 12/08/23 Rx
torsemide 20 mg tablet 20 mg PO QPM Fluid 08/26/22 12/08/23 12/07/23 History
Retention/Swelling
calcitriol 0.25 mcg capsule 0.25 mcg PO MOWEFR 12/08/23 12/08/23 12/08/23 History
Review of Systems
-
All other systems: Negative unless noted
Vitals / Labs / Diagnostic Testing
Vital Signs
Temp Pulse Resp BP Pulse Ox
98.0 F 51 18 76/52 98
12/10/23 07:00 12/10/23 07:00 12/10/23 07:00 12/10/23 07:00 12/10/23 07:00
Lab Data
12/10/23 06:03
Laboratory Results
12/09/23
13:45
APTT Cancelled
Diagnostic Testing:
Physical Exam
-
HEENT: Normocephalic, Anicteric and Other (Pallorous)
Cardiovascular: S1/S2, Irregular Rhythm (Tachycardic), Murmur (n) and Peripheral Edema (n)
Respiratory: Wheeze (n), Rales (n), Rhonchi (n) and Non-Labored Respirations
GI: Soft, Non Distended and Non Tender
Neurology: Awake, Alert and No Motor Deficits (Moves all extremities, follows commands)
Skin: Other (Pallorous, cool)
General: Comfortable
Assessment
-
73-year-old male with complex medical history including cardiomyopathy EF 30%, atrial fibrillation not on anticoagulation, history of renal cancer with nephrectomy in the past, chronic kidney disease, schizophrenia with cognitive impairment.
Patient transferred to ICU after rapid response for hypotension, found to be anemic. Received IV fluids, blood transfusion, pressors. Imaging confirmed evidence of intra-abdominal bleed with multiple liver lesions worrisome for metastatic disease.
We are asked to help from critical care standpoint 12/10/2023
Acute hypotension
Suspected hemorrhagic shock
Atrial fibrillation with rapid ventricular response
Not on anticoagulation due to noncompliance, fall risk
Acute anemia
Suspected intra-abdominal bleeding, possible liver source
Coagulopathy, suspected hepatic related
Acute transaminitis
Suspected secondary to liver injury, history of transaminitis in the past
Acute right pleurisy
Likely secondary to underlying liver process
Hyperglycemia
Conditions present prior to admission
Hypertension/hyperlipidemia
Schizophrenia with cognitive impairment
Chronic kidney disease stage IV
History of right nephrectomy for renal cancer
Diabetes
Ambulatory dysfunction
DNR status per advanced directive
Plan/recommendations
Patient is critically ill
Anemia noted, imaging confirmed intra-abdominal bleed likely liver source
Unfortunate unable to give contrast given significant renal disease, history of nephrectomy without risk for renal failure
Advance directives have stated that patient would not want dialysis
Moving forward
Continue with supportive care
IV fluids, blood transfusion, follow hemoglobin
Not sure whether CT angiogram risks are worth the potential benefits given underlying multisystem organ disease and chronic disease and prior advance directives
Possibility of metastatic disease noted per imaging in the liver
This will be an ongoing discussion with family and patient
Hyperglycemia noted
Start sliding scale for now, may require glycemic protocol
Patient noncompliant with diabetic meds in the past per records
Patient also has lost significant weight, diabetes improved per aide
Continue with pressors. May need to add vasopressin
Currently on norepinephrine
Coagulopathy noted. Likely underlying liver disease
Vitamin K x 1
Will check lower extremity Dopplers
Less likely thromboembolic disease and more likely hemorrhagic shock in the setting of cardiomyopathy
Reviewed at length multiple times with brothers at bedside
Reviewed at length with cardiology, primary service
Suspect based on above, long-term prognosis is poor
Prior advanced directive suggest DNR. This will be addressed
Reviewed at length with critical care nursing, respiratory care, pharmacy
TCCT 77 min
[2023-12-10] MEDS: LEVOPHED 250 IV (08:25)
[2023-12-10] MEDS: SOLU-CORTEF 100 MG IV (08:29)
--- NOTE | 2023-12-10 08:41 | W.PN.CD ---
Today's Communication / Plan
-
Patient transferred to the ICU this morning for development of acute hypotension. Systolic blood pressures in the 70s. Patient currently awake alert oriented with no complaints of chest pain or shortness of breath. Now receiving IV fluids and
Levophed.
Labs with acute drop in hematocrit when labs are compared to 12/08/2023 with drop from 11.3-7.6. Confirming CBC pending. Combination of change in lab and hypotension concern for acute bleeding. But will also consider other causes of hypotension.
ECG without acute ischemic changes and patient without hypotension.
-IV fluids
-Levophed
-Patient has repeat hemoglobin/hematocrit and type and cross pending
-Plan for PRBCs
-If drop in hemoglobin/hematocrit is confirmed to be accurate then patient will need an abdominal CT
-Heart rate currently mildly elevated but consistent for clinical circumstances. Continue to monitor rates as metoprolol being held for hypotension.
Impression / Plan
-
73 y/o male (known to Dr. Palacio, His primary Burn Nurse) with advanced schizophrenia with cognitive impairment , permanent AFIB (not on OAC due to med non-compliance and fall risk), HFrEF (EF 30-35%, specific etiology unclear, but conservative
management due to advanced CKD and cognitive impairment), hypertension, dyslipidemia, DM, renal cancer s/p nephrectomy, chronic renal insufficiency (Dr. Truong), ambulatory dysfunction (walker/cane use per OP chart), and anemia who is here for
evaluation of chest pain since last night. He notes a sharp pain with inspiration. Improved in ER. There is associated SOB. He is in no distress at the time of my assessment. Troponin is 0.740, BNP >46027. WBC 13.8. Weight has been stable. He has
been taking his medicines.
In early childhood specialist hours 12/10/2023 patient developed acute hypotension look appears that systolic blood pressures have been running in the 150s and then were in the 70s. Patient with no complaints of chest pain or increased shortness of breath.
Patient was evaluated by Dr. Magallon and transferred to the ICU. Currently getting 250 cc bolus and is placed on IV Levophed. Also of note patient had labs which showed an acute drop in hemoglobin which showed an acute drop in hematocrit to 22.1
also acute rise and LFTs with AST 864 ALT 903 creatinine 3.5. No report of acute bleeding and clinically no melena or hematochezia.
Hypotension.
-Development of acute hypotension requiring transfer to ICU 12/10/2023
-Patient appears to have acute drop in hemoglobin exact cause unclear. Additional hemoglobin pending but I have concerned that the drop in hematocrit is real considering pallor and hypotension.
-IV fluids
-Stat hemoglobin and hematocrit. Patient also with type and cross and if hemoglobin confirmed transfuse PRBCs. Will also need abdominal CT to look for source of bleeding such as retroperitoneal bleed.
-Blood cultures
-Serial troponins
Chest pain:
-Pleuritic chest pain on presentation which subsequently resolved. Unclear if resolved with diuresis. Currently pain-free even with hypotension.
-Echocardiogram yesterday with overall unchanged cardiac function (EF 35%).
Abnormal troponin:
-Based on prior notes patient suspected to have acute non-ischemic myocardial injury in setting of CHF, abnormal renal function, elevated BP's in ER.
-Now trending down with management.
-Continue to focus on management of hypotension as noted above will recheck troponins considering change in clinical status.
HFrEF: [id number]
-BNP >84770. Mild rales to bases.
-Diuretic will be stopped due to hypotension patient will be given back IV fluid and may require additional PRBCs monitor for heart failure with additional volume
Permanent AFIB:
-Heart rate mildly elevated but appropriate for clinical circumstance.
-Hold Toprol with hypotension
-Continue to monitor rates
Abnormal LFTs. Acute rise in 800-900 range likely related to hypotension. Continue supportive treatment noted above and monitor.
PATTI on CKD:
-Creatinine 3.5 continue to monitor and optimize hemodynamics
Physical Exam
Vital Signs/Labs
Vital Signs
Temp Pulse Resp BP Pulse Ox
96.1 F L 116 17 81/68 100
12/10/23 08:36 12/10/23 08:35 12/10/23 08:35 12/10/23 08:35 12/10/23 08:35
12/09/23 12/10/23 12/11/23
06:59 06:59 06:59
Actual Weight 93.553 kg 92.306 kg
12/10/23 06:03
APTT Cancelled 12/09/23 13:45
Magnesium 2.5 mg/dl (1.6-2.3) H 12/09/23 06:16
Triglycerides 119 mg/dl (10-149) 12/09/23 06:16
LDL Cholesterol, Calc 56 mg/dl 12/09/23 06:16
VLDL Cholesterol, Calc 23 mg/dl (0-30) 12/09/23 06:16
HDL Cholesterol 52 mg/dl 12/09/23 06:16
12/08/23
13:48
Qfx-Y-Cyoxjehhiak Pept > 55591
LAB Results
12/08/23 12/08/23 12/09/23
13:48 19:47 04:10
Troponin I 0.740 H* 0.534 H* D 0.366 H*
12/09/23 12/09/23 12/09/23
06:00 11:45 13:54
Troponin I Cancelled Cancelled 0.237 H*
12/09/23
20:31
Troponin I 0.194 H*
Physical Exam
Constitutional: No acute distress and Other (Awake alert respiratory status stable while laying flat on nasal cannula oxygen no complaints of chest pain or shortness of breath. Patient appropriately oriented.)
EENT: Anicteric and Other (Pale conjunctiva. Oral exam, pallor)
Cardiovascular: Rhythm/rate is irregular
Respiratory: Respiratory effort normal, Lungs clear to auscul., Wheeze Absent and Crackles Absent
GI: Soft, Non tender and Other (No ecchymoses no mass)
Neuro/Psych: Alert, Oriented and AO x 3
Data Reviewed
-
Date of Service: December 10, 2023
Medical Decision Making: Reviewed Test Results
Echo: Report Reviewed by me
X-Ray/CT/US/MRI/NUC/PET: Report Reviewed by me
Medical Tests (PFT, Pathology etc): Report Reviewed by me
Labs: Labs Reviewed by me
[2023-12-10 08:49] LABS: INR 2.08; PT 23.3 Sec (11.4-14.6)
[2023-12-10 08:50] LABS: APTT 42.5 Sec (23.4-35.0)
[2023-12-10] MEDS: NSS 250 IV (08:50)
[2023-12-10 08:53] LABS: Lactic Acid 3.4 mmol/L (0.7-2.0)
[2023-12-10] MEDS: NSS 500 IV (08:54)
[2023-12-10 09:06] LABS: Hemoglobin 6.4 g/dL (13.0-18.0)
[2023-12-10 09:07] LABS: Troponin I 0.175 ng/ml
[2023-12-10 09:32] LABS: Iron 118 ug/dl (49-181); Magnesium 2.4 mg/dl (1.6-2.3); Percent Saturation 52 % (20-50); Total Iron Binding Capacity 224 ug/dl (261-462)
[2023-12-10] MEDS: AQUAMEPHYTON 50.5 MG IV (09:33)
--- NOTE | 2023-12-10 09:34 | RR ---
When the table games shift manager nurse & I walked into the room for shift report, the pt was complaining of chest pain and back pain.
When the aid went into the room to take vitals he said that his back was hurting. When she took his vitals the BP was low 77/52, Temp: 98.1, 2L @ 98%, 22 Respirations.
Rapid response was called.
A Rapid Response was called on this patient, please see Rapid Response form.
[2023-12-10] MEDS: SODIUM BICARBONATE PO (09:41)
[2023-12-10] MEDS: FLOMAX PO (09:41)
[2023-12-10] MEDS: ZOSYN 50 IV ×2 (10:08→13:40)
[2023-12-10] MEDS: LEVOPHED 258 MG IV ×2 (10:39→15:38)
--- NOTE | 2023-12-10 10:50 | VATNOTE ---
Left PICC pulled back 5cm as per Radiologist recommendation.
[2023-12-10] MEDS: PITRESSIN 100 IV ×2 (11:31→18:53)
[2023-12-10 11:45] LABS: Glucose - Point of Care 297 mg/dl (70-99)
[2023-12-10] MEDS: NSS 1000 IV (13:02)
[2023-12-10] MEDS: NOVOLOG FLEXPEN-MODERATE RESISTANCE 7 UNITS SC (13:48)
[2023-12-10 13:58] LABS: Lactic Acid 2.8 mmol/L (0.7-2.0)
[2023-12-10 14:00] LABS: Glucose - Point of Care 302 mg/dl (70-99)
--- NOTE | 2023-12-10 14:09 | W.PN.UPDATE ---
Update Note
Progress Note Update
IMPRESSION:
1. Hepatomegaly and diffuse heterogeneous hepatic attenuation with multiple low-attenuation lesions suspicious for metastasis. As above, there is small volume perihepatic and perisplenic hemorrhage. There is small to moderate volume of
hemoperitoneum in the lower abdomen and pelvis. Site of hemorrhage is indeterminate on noncontrast CT, hepatic hemorrhage is the most likely differential consideration given the remainder of the findings.
2. Coronary and aortic atherosclerosis. Ectasia ascending aorta, 4.0 cm diameter.
3. Low-attenuation 2.7 cm right adrenal mass most likely representing benign adenoma.
4. Colonic diverticulosis.
5. Right abdominal wall recurrent hernia involving colon, no associated obstruction.
-updated patient with recycler forklift driver truck driver and friend at bedside
-patient and family told they will not survive this
-we will continue current intervention now - pressors, blood, trend Hg
-patient is DNR per prior wishes and after this conversation, patient and brother agree
--- NOTE | 2023-12-10 14:39 | PN.CDI ---
CDI
- -
CDI:
Physician Documentation Request
Admit Date: 12/08/23 17:02
Dear Doctor Sherita,
Patient admitted with heart failure. Troponin noted to be elevated.
Cardiology states 'suspected to have acute non-ischemic myocardial injury in setting of CHF...'
Hospitalist progress note states 'Elevated Troponin - non-MN Troponin elevation in setting of heart failure'
In an attempt to clarify potentially conflicting documentation, please clarify the initial etiology of the elevated troponin:
non ischemic myocardial injury
non MN troponin elevation
Other
Use of terms such as suspected, likely, concern for, or probable (associated with a specific diagnosis that is being evaluated, monitored, or treated as if it exists) are acceptable and can be coded in the inpatient setting, when documented at the
time of discharge.
Thank you,
Arcelia Li RN, BSN
CDI Specialist
tiger text
Please use your independent medical judgment in providing your response.
--- NOTE | 2023-12-10 16:17 | CHAP ---
Emotional and spiritual support provided. Prayers shared, prayer blanket given. 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 Will follow.
[2023-12-10 17:09] LABS: Troponin I 0.152 ng/ml
[2023-12-10] MEDS: SOLU-CORTEF 50 MG IV (17:31)
[2023-12-10] MEDS: NOVOLOG FLEXPEN-MODERATE RESISTANCE 5 UNITS SC (17:31)
[2023-12-10 17:39] LABS: Glucose - Point of Care 295 mg/dl (70-99)
--- NOTE | 2023-12-10 19:28 | PTCARENOTE ---
0755- Received patient from rapid response. Patient drowsy but arousable. Oriented conversation. Afib with RVR on tele monitor. HR 110-140's. SBP 70-80's. Levophed gtt initiated for SBP >100, in addition to 250 cc bolus. Relations Mgr and House Mother
at bedside. Patient seen by Hospitalist during rapid response. Additional 500 cc bolus and stress dose of iv steroids ordered. Repeat labs drawn. Hgb down to 6.4. 1 unit PRBCs ordered. Patient pale, cold and clammy. Pulse ox 100% on 2L nc. Lung
sounds diminished throughout with slight crackles in b/l bases. +BS (hypo). Abdomen non-tender. 14Fr Delacruz catheter placed for critical I/O's. Urine output yellow with sediment. Left hand INT infiltrated. Levo and IVF bolus infusing through RAC INT.
Order for PICC placed. Vitamin K administered. Dual lumen PICC placed in LUE. Placement confirmed with CXR. 1 unit of PRBCs initiated. Levophed gtt order changed for MAP>65 and double concentrated. BP unstable. Levophed gtt titrated up to max rate.
Order for Vasopressin obtained. Additional unit of PRBCs ordered. Patient's 2 brothers, friend and animal assistant at bedside. Updated by Relations Mgr.
1200 - 2nd unit of PRBCs transfused wide open. Patient stabilized for transfer to CT. Patient reassessed. Minor changes. Less responsive. Remains in afib with RVR. 2nd unit transfused. UOP 5 cc's/hr. Discussed with Relations Mgr. Repeat Hgb and Lactic
sent. 3rd unit of PRBCs transfused. Hospitalist at bedside to discuss CT results with patient. Code status changed to DNR. Diet advanced to regular. Appetite poor. Patient set up in bed with water and oatmeal.
1600- No changes in assessment. BP improved. Weaning Levophed for MAP>65. Patient resting comfortably. No complaints. Pastoral care requested to visit patient. Emotional support provided. Next Hgb level due at 2200.
--- NOTE | 2023-12-10 21:16 | PTCARENOTE ---
Shortly after 2099 pt's HR noted to be briefly in 160s but then back to 110s-120s AFib where he had been. Pt's HR then quickly dropped to 80s-->70s-->60s, pt agonally breathing and not responsive, HR then dropped to 20s, then pt went into VTach, and
then asystole at 2107. ICU TRADEMARK AFFIXER. Isrrael Bridges also in room, now placing call to family.
--- NOTE | 2023-12-10 21:41 | W.PN.DEATH ---
Pronouncement of
-
Called to see patient to pronounce.
No spontaneous heart tones or respirations noted.
Patient not responsive to verbal stimuli.
Patient is pronounced .
Time of : 21:08
Date of : 12/10/23
Cause of : cardiogenic shock, congestive heart failure
Family Notified: Yes (brother- Elmer Osei)
--- NOTE | 2023-12-10 22:59 | PTCARENOTE ---
[place] [facility] [place] care done[place] Pt is suitable for cornea donation per [facility].
--- NOTE | 2023-12-11 07:35 | W.DCSUMMARY ---
Discharge Summary
Discharge Data
Date of Admission: 12/08/23
Date of Discharge: 12/11/23
-
Pending Results: No
Hospital Course
Date of 12/10/23; Time of 21:08
Cause of : Hypovolemic Shock secondary to hemorrhage likely from liver metastasis
Hospital Course :
Mr. Keron Clarke is a 73 yo man with hx right nephrectomy 2/2 RCCC, CKD IV, cardiomyopathy with EF 30-35%, DM, atrial fibrillation, schizophrenia presents to the ER with worsening shortness of breath and development of chest pain night prior.
Triage vitals stable, WBC 13.8, liver enzymes mildly elevated AST 215, ALT 159, Trop 0.740 and BNP > 05958. CXR without acute abnormality. Stat TTE without significant change from prior. Concern raised for heart failure in setting of ACS versus
PE. He was maintained on IV heparin gtt overnight, which was discontinued the following morning with downtrending Troponins. Symptoms initially improved with diuresis and nitro. Rapid response called following day, patient hypotensive post nitro
with normalization of blood pressure after several minutes. On the morning of 12/09 patient had hypotension and labs showed a drop in Hg. He required transfer to the ICU and initiation of pressors. CT A/P showed liver suspicious for metastatic
disease with perihepatic and perisplenic hemorrhage as well as hemoperitoneum. Not a candidate for embolization with CKD IV. Patient and family updated and told that he would pass from this. Code status changed to DNR (had living will confirming
this in past; and per these new discussions with patient and family). He passed that evening at 9:08 PM and brother was notified.
Important imaging findings :
TTE 12/08/23
CONCLUSIONS
Moderately reduced left ventricular systolic function.
Left ventricular ejection fraction 35% by visual estimate.
Global hypokinesis with beat to beat variation (AFib).
Severe inferolateral wall hypokinesis.
Severely dilated left atrium.
Mild mitral regurgitation.
Normal right ventricular size and function.
Mild to moderate tricuspid regurgitation.
Estimated PASP 37 mmHg assuming RA 8 mmHg.
No significant change from 07/24/2021 when LVEF was estimated at 30-35% and the
RV was felt to be mildly hypokinetic.
Indications:
abnormal troponin
CT A/P 12/10/23
IMPRESSION:
1. Hepatomegaly and diffuse heterogeneous hepatic attenuation with multiple low-attenuation lesions suspicious for metastasis. As above, there is small volume perihepatic and perisplenic hemorrhage. There is small to moderate volume of
hemoperitoneum in the lower abdomen and pelvis. Site of hemorrhage is indeterminate on noncontrast CT, hepatic hemorrhage is the most likely differential consideration given the remainder of the findings.
2. Coronary and aortic atherosclerosis. Ectasia ascending aorta, 4.0 cm diameter.
3. Low-attenuation 2.7 cm right adrenal mass most likely representing benign adenoma.
4. Colonic diverticulosis.
5. Right abdominal wall recurrent hernia involving colon, no associated obstruction.
Procedure findings :
Discharge Plan
-
Patient Disposition:
Date/Time
Date/Time: 12/10/23 21:08
Discharge Date and Time
Discharge Date/Time: 12/10/23 21:08
Print Language: VENEZUELAN
--- NOTE | 2023-12-13 10:16 | PN.CDI ---
CDI
- -
CDI:
Physician Documentation Request
Admit Date: 12/08/23 17:02
Dear Doctor Sherita,
12/09 progress note states 'hold aspirin with anemia'. Patient has a history of CKD 4.
Found this admission to have hypovolemic shock secondary to hemorrhage likely from liver metastasis.
Patient received 3 units of PRBC on 12/09
Based on the above, could you clarify, in your progress note, which of the following is the most likely type of anemia you are evaluating, monitoring and/or treating?
Acute blood loss anemia
Acute blood loss anemia with baseline chronic anemia (Specify type)
Anemia of chronic disease - indicate if neoplastic disease, CKD or other
Other
Use of terms such as suspected, likely, concern for, or probable (associated with a specific diagnosis that is being evaluated, monitored, or treated as if it exists) are acceptable and can be coded in the inpatient setting, when documented at the
time of discharge.
Thank you,
Arcelia Li RN, BSN
CDI Specialist
tiger text
Please use your independent medical judgment in providing your response.
== END 2023-12-10 21:08 | disposition expired | DRG 291 ==
LOC: ICU 17:02
PROVIDERS: Emergency Medicine; Internal Medicine Cardiovascular Disease; Nurse Practitioner; Physician Assistant Medical; ADMITTING PHYSICIAN Student in an Organized Health Care Education/Training Program; CONSULT PHYSICIAN Internal Medicine Cardiovascular Disease; CONSULT PHYSICIAN Internal Medicine Critical Care Medicine; EMERGENCY PHYSICIAN Emergency Medicine; FAMILY PHYSICIAN Family Medicine
DX: I13.0 Hypertensive heart and chronic kidney disease with heart failure and stage 1 through stage 4 chronic kidney disease, or unspecified chronic kidney disease (principal); I50.23 Acute on chronic systolic (congestive) heart failure; I48.21 Permanent atrial fibrillation; N17.9 Acute kidney failure, unspecified; N18.4 Chronic kidney disease, stage 4 (severe); I50.20 Unspecified systolic (congestive) heart failure; C78.7 Secondary malignant neoplasm of liver and intrahepatic bile duct; I5A Non-ischemic myocardial injury (non-traumatic); E11.22 Type 2 diabetes mellitus with diabetic chronic kidney disease; K57.30 Diverticulosis of large intestine without perforation or abscess without bleeding; Z66 Do not resuscitate; Z79.82 Long term (current) use of aspirin; F20.9 Schizophrenia, unspecified; R57.0 Cardiogenic shock; R57.1 Hypovolemic shock; E11.65 Type 2 diabetes mellitus with hyperglycemia
CPT/HCPCS: 71045; 71046; 71250; 74176; 80053; 80061; 82728; 82962; 83540; 83550; 83605; 83735; 83880; 84443; 84484; 85018; 85025; 85027; 85610; 85730; 86850; 86900; 86901; 86920; 87040; 93005; 93306; 96365; 96366; 99291; P9016